=== PATIENT | male | born 1960 | race Caucasian/White ===

== ENCOUNTER 2017-05-28 13:13 | Inpatient (IN) | payer OTHER ==
[~2017-05-28] VITALS: Ht 182.9 cm; Wt 129.3 kg
[2017-06-21] MEDS ORDERED: METOPROLOL SUCC50 MG PO (17:47)
[2017-06-21] MEDS ORDERED: AMLODIPINE BESYL5 MG PO (17:47)
[2017-06-21] MEDS ORDERED: LEVOTHYROXINE50 MCG PO (17:48)
[2017-06-21] MEDS ORDERED: ENALAPRIL MALEA20 MG PO (17:48)
--- NOTE | 2017-06-22 09:31 | NUR ---
06/22/17 0931 Dawn Tesfaye 0942-PATIENT ARRIVED TO PACU ON 8L MASK O2 SAT 99% NONAROUSABLE DRESSING TO LEFT HIP CDI ABDUCTOR PILLOW IN PLACE ICE APPLIED. 0930-PATIENT AROUSING RUBBING FACE. EYES CLOSED.
--- NOTE | 2017-06-22 10:46 | NUR ---
PT ARRIVED TO ROOM 124 AT 1015 WITH GUERO BRYANT. NUMBNESS IN LOWER EXTREMITIES BUT ABLE TO MOVE SLIGHTLY. ASSISTED UP IN BED. IVF INFUSING AT 125ML/HR. NO PAIN REPORTED. HR 44-50 AND ASYMPTOMATIC-- REPORTED BY GUERO BRYANT AND ALSO VISUALIZED ON CONTINUOUS PULSE OX MACHINE. EDUCATED ON USE OF IS. SCDs IN PLACE. HEART SOUNDS DISTANT D/T POSITION AND SIZE OF PATIENT. LUNGS CLEAR. BT HYPOACTIVE.
--- NOTE | 2017-06-22 11:22 | NUR ---
PATIENT AWAKE AND ALERT. VSS ON ROOM AIR. AT BEDSIDE. NO PAIN. PATIENT ASKING WHEN HE CAN GET UP. WILL CONSULT PHYSICAL THERAPY ABOUT SCHEDULE.
--- NOTE | 2017-06-22 12:14 | NUR ---
MED REC COMPLETE WITH SAFEWAY REFILL HISTORY AND PATIENT INTERVIEW. PATIENT HAD EXCESS METOPROLOL THEREFORE HAS NOT FILLED IN A WHILE, BUT IS STILL TAKING THIS MEDICATION.
--- NOTE | 2017-06-22 13:25 | NUR ---
PATIENT TO FLOOR FROM OR. RN IN ROOM.
--- NOTE | 2017-06-22 14:49 | NUR ---
PATIENT UP TO WALK WITH PT, STARTS VOMITTING. PATIENT BACK TO ROOM, MEDICATED WITH 10 MG IV REGLAN. PATIENT SITTING UP AT SIDE OF BED DOING EXERCISES WITH PT.
--- NOTE | 2017-06-22 14:51 | NUR ---
PATIENT WORKING WITH PATIENT IN ROOM.
--- NOTE | 2017-06-22 14:55 | NUR ---
PT HAVING INTERMITTENT BOUTS OF NAUSEA/VOMITING. WORKING WITH PHYSICAL THERAPY NOW. AMBULATED HALLS. UNABLE TO URINATE WHEN UP TO BATHROOM, BUT DID HAVE INCONTINENT EPISODE IN BED. WILL BLADDER SCAN WHEN PATIENT BACK TO BED.
--- NOTE | 2017-06-22 15:43 | OR ---
[facility] [address] [place], [place] [address] Signed DATE OF OPERATION: 06/22/2017 SURGEON: Frankie Dye MD PREOPERATIVE DIAGNOSIS: End-stage osteoarthritis, left hip. POSTOPERATIVE DIAGNOSIS: End-stage osteoarthritis, left hip. PROCEDURE: Left total hip arthroplasty. IMPLANTS: Size 54 Gription sector shell with one screw followed by a neutral 36 liner. On the femoral side, there was a size 7 [place] stem, porous ingrowth, high offset and then we used a +2 mm 36 head. ANESTHESIA: Spinal with sedation. SPECIMENS: There were no specimens. COMPLICATIONS: There were no complications. BLOOD LOSS: About 200 mL. WHAT WAS DONE: The patient was taken to the operating room. After anesthesia was induced and the patient sedated, he was placed in the right lateral decubitus position and prepped and draped in a routine sterile fashion. Using a slightly curvilinear lateral incision, skin was divided sharply. Hemostasis was achieved with electrocautery. The subcutaneous tissue was bluntly spread and again hemostasis was achieved with electrocautery. The deep fascia was incised in line with the skin incision and the Charnley retractor was placed. We then released the anterior one-third of the gluteus off the anterior aspect of the greater trochanter and retracted it medially. We then did an anterior capsulectomy. This enabled us to dislocate the head. We resected the head/neck fragment Electronically Signed By: FRANKIE DYE MD 06/22/17 1543 PATIENT NAME: LEOBARDO RAWLS OPERATIVE REPORT DATE OF : 56 PHYSICIAN: FRANKIE DYE MD REPORT #: [id number] REPORT IS CONFIDENTIAL AND NOT TO BE RELEASED WITHOUT AUTHORIZATION [facility] [address] [place], [place] [address] Signed using the given guide. The head and neck fragments were removed. The self-retaining [place] retractor was then placed along with a Christine retractor at the 12 o'clock position. We then used electrocautery to excise the remaining portion of the labrum along with the contents of the pulvinar. We then began to ream and reamed up to a 54 mm shell. We then impacted a 54 mm Gription cup which fit quite snugly. We did secure with one additional screw placed posterosuperiorly. We then impacted the neutral 36 liner. We then rotated the femur up into the wound and prepared it using standard reamers and broaches. We were quite happy with the size 7 broach. We reduced it on a -2 standard offset head. There was still some medial lateral laxity and the leg length was slightly short. An AP x-ray was taken which showed good alignment and position of the cup and the femoral component. We therefore dislocated the hip, put in the real stem and then reduced it again with the +2 head and were happy with alignment, position, motion and stability. The wound was gently irrigated and closed in standard fashion. A sterile dressing was applied and the patient was placed in a hip abduction splint, awakened and taken to the recovery room where arrived in stable condition. Counts were correct and antibiotic protocols were followed. Frankie Dye MD WFB/MODL /[id number] Electronically Signed By: FRANKIE DYE MD 06/22/17 1543 PATIENT NAME: RAWLSLEOBARDO OPERATIVE REPORT DATE OF : 56 PHYSICIAN: FRANKIE DYE MD REPORT #: [id number] REPORT IS CONFIDENTIAL AND NOT TO BE RELEASED WITHOUT AUTHORIZATION
--- NOTE | 2017-06-22 16:21 | NUR ---
PT UNABLE TO URINATE, BUT BLADDER SCAN RESULTS SHOWED 250CC IN BLADDER. WILL CONTINUE TO MONITOR URINE OUTPUT.
--- NOTE | 2017-06-22 18:13 | NUR ---
PT URINATED 25ML INTO URINAL. BLADDER SCAN 336ML. WILL CONTINUE TO MONITOR UO.
--- NOTE | 2017-06-22 18:19 | NUR ---
POST OP DAY 0. OUT OF BED WITH PHYSICAL THERAPY TO AMBULATE HALLS. 1PA WITH FWW. EMESIS WHILE AMBULATING. ZOFRAN AND REGLAN GIVEN. TOLERATING CLEAR LIQUIDS. SOME NAUSEA STILL. NO PAIN. IVF @ 125. LEFT HIP DRESSING C/D/I. REINFORCE FALL PREVENTION STRATEGIES TO PATIENT. 25CC URINE OUT INTO URINAL. LAST BLADDER SCAN AT 1730 336ML. WILL CONTINUE TO MONITOR. ROOM AIR. SCDs. ICE TO LEFT HIP.
--- NOTE | 2017-06-22 19:59 | NUR ---
RECEIVED REPORT FROM DAY SHIFT RN. PATIENT IS RESTING IN BED WATCHING TV. PATIENT DENIES ANY PAIN OR NAUSEA. CALL LIGHT IN REACH.
--- NOTE | 2017-06-22 20:35 | NUR ---
PATIENT ASSESMENT COMPLETED. PATIENTS EVENING MEDICATIONS GIVEN PER ORDER. PATIENT DENIES ANY PAIN. PATIENT DENIES ANY NAUSEA. PATIENT AHS MEPILEX AND OPSITE ON LEFT HIP AND DRESSING IS C/D/I, NO DRAINAGE NOTED. PATIENT HAS WEDGE IN PLACE. PATIENT WAS ABLE TO VOID QS. PATIENT RECEIVED BENADRYL FOR ITCHING. PATIENT DENIES ANY FURTHER NEEDS. CALL LIGHT IN REACH.
--- NOTE | 2017-06-22 23:14 | NUR ---
NURSE NOTIFIED RE VITAL SIGNS.
--- NOTE | 2017-06-22 23:33 | NUR ---
PATIENTS 2300 MEDICATIONS GIVEN PER ORDER. PATIENT CONTINUES TO DENY ANY PAIN AT THIS TIME. PATIENT DENIES NAUSEA. PATIENT DENIES ANY FURTHER NEEDS CALL LIGHTIN REACH.
--- NOTE | 2017-06-23 01:13 | NUR ---
PATIENT IS RESTING IN BED WITH EYES CLOSED. PULSE OX READINGS ARE WNL. CALL LIGHT IN REACH.
--- NOTE | 2017-06-23 03:43 | NUR ---
PATIENT IS IN BED RESTING IWTH EYES CLOSED. BREATHING IS EVEN AND UNLABORED, RR18. CALL LIGHT IN REACH.
--- NOTE | 2017-06-23 04:23 | NUR ---
PATIENT GIVEN SCHEDULED TORADOL PER ORDER. PATIENT DENIES PAIN. PATIENT STATED "MY HIP IS JUST SORE, I CAN FEEL ITS THEIR, BUT NO PAIN" PATIENT DENIES ANY NAUSEA. PATIENT DENIES ANY FURTHER NEEDS AT THIS TIME. CALL LIGHT IN REACH.
--- NOTE | 2017-06-23 05:10 | NUR ---
PATIENT HAS GOOD INTAKE AND OUPUT. PATIENT IS NOW SL PER ORDER.
--- NOTE | 2017-06-23 05:21 | NUR ---
PATIENT RESTED ON AND OFF THROUGHOUT THE SHIFT. PATIENT DENIES ANY PAIN. PATIENT HAS SCHEDULED TORADOL AND TYLENOL FOR PAIN, NO PRN NEEDED. PATIENT DENIED ANY NAUSEA. PATIENT RECEIVED BENADRYL X1 FOR ITCHING. PATIENTS DIET WAS ADVANCED TO REG. PATIENT HAS ADEQUATE INTAKE AND OUTPUT. PATIENT IS SL. PATIENT IS AAOX3. PATIENT IS A 1PA W/FWW. PATIENT TOLERATES AMBULATION WELL. PATIENT HAS WEDGE IN PLACE WHILE IN BED. PATIENT USES CALL LIGHT APPROPRIATELY.
--- NOTE | 2017-06-23 06:40 | NUR ---
PATIENTS MORNING MEDICATIONS GIVEN PER ORDER. PATIENT RATES PAIN AT A 1/10. PATIENT DENIES THE NEED FOR PAIN MEDICATION AT THIS TIME. PATIENT IS SL, IV FLUSHES WELL. PULSE OX REMOVED. PATIENT IS 99% ON RA. PATIENT DENIES ANY NAUSEA. PATIENT DENIES ANY FURTHER NEEDS AT THIS TIME. CALL LIGHT IN REACH.
--- NOTE | 2017-06-23 08:00 | NUR ---
PATIENT UP TO CHAIR WITH ONE PERSON ASSIST WITH FWW. LINES CHANGED. ORAL CARE AND BATH DONE. CALL BUTTON IN REACH. RN IN ROOM.
--- NOTE | 2017-06-23 08:30 | NUR ---
PATIENT SITTING IN CHAIR. PATIENT MOVED TO CHAIR BY PROJECT MANAGEMENT. TOLERATED TRANSFER WELL. PATINT STATING PAIN CURRENTLY 08/28. PATIENT AT FIRST REFUSED PAIN MEDICATION. EDUCATED ABOUT STAING AHEAD OF PAIN AND THE PLAN TO WORK WITH PT. PATIENT THEN AGREED TO TAKE 5MG OXYCODONE. VITALS TAKEN ASSESSMENT COMPLETE. PATIENTS MEPILEX ON L HIP C/D/I. NO SOB. MEDICATION GIVEN. PATIENT DOING BED WIPES AT THIS TIME.
--- NOTE | 2017-06-23 09:36 | NUR ---
PATIENT SITTING UP IN CHAIR WATCHING TV. FRESH ICE WATER GIVEN NO NEEDS AT THIS TIME.
--- NOTE | 2017-06-23 09:38 | NUR ---
PATIENT CONTINUES TO SIT IN CHAIR TOLERATING WELL. FRIEND IN ROOM VISITING WITH PATIENT. PATIENT STATING NO OTHER NEEDS AT THIS TIME. CALL LIGHT WITHIN REACH.
--- NOTE | 2017-06-23 10:14 | NUR ---
toradol given. patient sitting in chair. rating pain 1-2 fletcher. patietn stating " just small ache". legs elevated. iv flushes well. no other needs at this time. call light within reach.
--- NOTE | 2017-06-23 10:54 | NUR ---
patient working with pt. stating pain okay at this time. tolerating ambulation well.
--- NOTE | 2017-06-23 12:43 | NUR ---
PATIENT SITTING UP IN CHAIR PLAYING ON HIS TABLET. NO NEEDS AT THIS TIME.
--- NOTE | 2017-06-23 13:16 | NUR ---
PATIENT RESTING IN CHAIR. PATIENT STATING PAIN " OKAY, CAN GET SHARP IN L HIP". AGREED TO TAKE 5 MG OXY. PATIENT RESTING WITH LEGS ELEVATED. NO NO OTHER COMPLAINTS AT THIS TIME.
--- NOTE | 2017-06-23 13:56 | NUR ---
PATIENT RESTING IN CHAIR. VISITOR IN ROOM. FRESH ICE WATER GIVEN. NO OTHER NEEDS AT THIS TIME.
--- NOTE | 2017-06-23 16:12 | NUR ---
PATIENT WORKING WITH PT.
--- NOTE | 2017-06-23 16:45 | NUR ---
patient working with pt in treatment room. patient stating pain increasing. took tylenol and toradol in room due to pain while working with pt. patient working self into a sweat. once to room got wash cloth to wash face. ice packs for hip. assisted to chair with legs up. new water. patient sating pain increased when working with pt but refused to take more pain medication at this time. requesting to take two pills of the narcotic pain medications tonight before bed. educated patient about staying ahead of pain and keep up with pain medications. patient stated that he would like me know when he was ready to take more pain medications.
--- NOTE | 2017-06-23 17:01 | NUR ---
ina doing well today. working with pt. doing stairs. tolerating ambulating with a stby assist and walker. patient likes to take 1 pain pill at a times. had increased pain this evening and is requesting to take two before bed. scheduled toradol and tylenol given with prn oxy and dilaudid. no nausea on shift. tolerating regular diet well. needs to be educated on prn bowel medications. plan to discharge home tomorrow with outpatient pt.
--- NOTE | 2017-06-23 17:45 | NUR ---
PATIENT SITTING UP IN CHAIR WITH VISITOR IN ROOM. CALL BUTTON INREACH. FRESH ICE WATER GIVEN. NO OTHER NEEDS AT THIS TIME.
--- NOTE | 2017-06-23 17:53 | NUR ---
patient stating pain a 6 with any type of movement. gave 2 tavs oxy. girlfriend in room. no other needs at this time.
--- NOTE | 2017-06-23 19:48 | NUR ---
RECEIVED REPORT FROM DAY SHIFT RN. PATIENT IS RESTING IN BED WATCHING TV. PATIENT DENIES ANY PAIN AT THIS TIME. CALL LIGHT IN REACH.
--- NOTE | 2017-06-23 21:20 | NUR ---
PATIENT ASSESMENT COMPLETED. PATIENTS EVENING MEDICATIONS GIVEN PER ORDER. PATIENT EDUCATED ON CONSTIPATION AND IMPORTNACE OF BOWEL CARE MEDICATIONS. PATIENT VERBALIZED UNDERSTANDING. PATIENT TOOK SCHEDULED BOWEL CARE MEDICATIONS. PATIENT GIVEN PRN PAIN MEDICATIONS PER ORDER. FOR 5/10 PAIN IN HIS LEFT HIP. PATIENTS DRESSING IS C/D/I. PATIENT DENIES ANY NAUSEA. PATIENT DID NOT EAT ANY OF HIS DINNER STATED "I JUST FEEL BLOATED, I AM NOT HUNGRY" PATIENT DENIES ANY FURTHER NEEDS AT THIS TIME. PATIENT HAS CRYO IN PLACE AND ICE IS SUFFICIENT. HEEL PROTECTORS AND SCDS IN PLACE. CALL LIGHT IN REACH.
--- NOTE | 2017-06-23 23:00 | NUR ---
PATIENT GIVEN PRN PAIN MEDICATION FOR 5/10 PAIN IN HIS RIGHT HIP. PATIENT REFUSED ICE TO BE PLACED ON HIS LEFT HIP. PATIENT DENIES ANY FURTHER NEEDS AT THIS TIME. CALL LIGHT IN REACH.
--- NOTE | 2017-06-24 01:00 | NUR ---
PATIENT GIVEN SCHEDULED MEDICATION PER ORDER. PATIENT ALSO GIVEN PRN PAIN MEDICATION FOR 3/10 PAIN. PATIENT DENIES ANY FURTHER NEEDS A THIS TIME. CALL LIGHT IN REACH.
--- NOTE | 2017-06-24 03:03 | NUR ---
PATIENT IS RESTING IN BED WITH EYES CLOSED, RR 18. CALL LIGHT IN REACH.
--- NOTE | 2017-06-24 04:21 | NUR ---
PATIENT GIVEN SCHEDULED MEDICATION. PATIENT GIVEN PRN PAIN MEDICAITION PER ORDER. PATIENT RATES PAIN AT A 3/10. PATIENT DENIES ANY NAUSEA. PATIENT REFUSES ANY ICE PACKS. PATIENT DENIES ANY FURTHER NEEDS. CALL LIGHT IN REACH.
--- NOTE | 2017-06-24 05:36 | NUR ---
PATIENT RESTED ON AND OFF THROUGHOUT THE SHIFT. PATIENT HAS RECEIVED PRN PAIN MEDICATION MULTIPLE TIMES, GOOD PAIN CONTROL. PATIENT IS ON A REG DIET AND TOLERATING WELL, NO COMPLAINTS OF NAUSEA. PATIENT IS SL AND IV FLUSHES WELL. RODNEY HAS HEEL PROTECTORS AND SCDS IN PLACE. PATIENT HAS REFUSED ICE TO BE PLACED ON HIS HIP. PATIENTS DRESSING IN LEFT HIP IS C/D/I, NO DRAINAGE NOTED. PATIENT IS SBA W/FWW AND IS STEADY ON HIS FEET. PATIENT IS AAOX3 AND USES CALL LIGHT APPROPRIATLEY.
--- NOTE | 2017-06-24 06:25 | NUR ---
PATIENT GIVEN SCHEULED MEDICATION AND PRN PAIN MEDICATION PER ORDER. PATIENT DENIES ANY FURTHER NEEDS. SO IN THE ROOM.
--- NOTE | 2017-06-24 06:39 | NUR ---
PATIENT CALLED AND ALERTED STAFF THAT HE HAD SOME EMESIS. PATIENT GIVEN PRN ZOFRAN PER ORDER. PATIENT HAD 300ML OF EMESIS. PATIENT DENIES ANY FURTHER NEEDS. WILL CONTINUE TO MONITOR. CALL LIGHT IN REACH.
--- NOTE | 2017-06-24 07:40 | NUR ---
BEDSIDE REPORT RECEIVED FROM DANK. ASSUMING PATIENT'S CARE AT THIS TIME. PATIENT AWAKE IN BED. REPORT VERY MINIMAL PAIN ON THE LEFT HIP. PATIENT HAD ORDERED BREAKFAST. DRESSING ON LEFT HIP D/C/I. IV SITE WNL.CALL LIGHT AND PERSONAL BELONGING WITHIN REACH. PATIENT HAD NO OTHER REQUEST.
--- NOTE | 2017-06-24 08:20 | NUR ---
PATIENT UP IN CHAIR. STATES FEELING GOOD. STATES "I'M GOING HOME WITH TARYN TODAY". DISCUSSED THAT HE STILL WANTS TO DO OUTPATIENT THERAPY WITH [facility]. ASSURRED HIM THAT WE WILL SEND CLINICALS TO THEM AFTER DISCHARGE.
--- NOTE | 2017-06-24 08:45 | NUR ---
PATIENT WAS UP WALKING IN THE HALLWAY WITH PHYSICAL THERAPIST. PATIENT BACK TO ROOM SITTING ON THE CHAIR. PATIENT REPORTED BEING NAUSEOUS. PATIENT WAS MEDICATED WITH REGLAN. PATIENT REPORTED VERY MINIMAL PAIN ON LEFT HIP. NOT ABLE EAT HIS BREAKFAST AT THIS TIME. CALL LIGHT AND PERSONAL BELONGING WITHIN REACH.
--- NOTE | 2017-06-24 09:16 | NUR ---
PATIENT IS SET UP FOR HIS SHOWER. GOT HIM SOME MORE ICE WATER. SITTING IN HIS CHAIR.
--- NOTE | 2017-06-24 10:48 | NUR ---
PATIENT IS SLEEPING IN CHAIR WILL CHECK BACK IN LATER.
--- NOTE | 2017-06-24 10:58 | NUR ---
PATIENT RESTING IN THE CHAIR, REPORTED NO NAUSEA AT THIS TIME. MORNING MEDS ADMINISTERED. DENIES ANY PAIN AT THIS TIME. CALL LIGHT AND PERSONAL BELONGING WITHIN REACH
--- NOTE | 2017-06-24 11:59 | NUR ---
PATIENT HAD SHOWERED. RESTING IN THE CHAIR AT THIS TIME. REPORTS NO PAIN. STATED THAT HE IS NOT HUNGRY AT THIS TIME. CALL LIGHT AND PERSONAL BELONGING WITHIN REACH
--- NOTE | 2017-06-24 12:01 | NUR ---
PATIENT JUST GOT OUT OF THE SHOWER SAID IT FELT GOOD. ALEXANDER THE NURSE CLEANED UP THE TOWELS FROM THE SHOWER. NOW PATIENT IS SITTING IN HIS CHAIR READING HIS TABLET.
--- NOTE | 2017-06-24 13:00 | NUR ---
DR DYE WAS IN ROOM TO SEE AND RE-EVALUATE PATIENT. PLAN FOR DC TODAY. PATIENT RESTING IN THE CHAIR DENIES ANY PAIN AT THIS TIME. FAMILY IN ROOM.
[2017-06-24] MEDS ORDERED: XARELTO10 MG PO (13:46)
[2017-06-24] MEDS ORDERED: OXYCODONE HCL10 MG PO (13:48)
[2017-06-24] MEDS ORDERED: DILAUDID4 MG PO (13:50)
[2017-06-24] MEDS ORDERED: ZOFRAN ODT4 MG SL (13:51)
--- NOTE | 2017-06-24 14:09 | NUR ---
PATIENT RESTING IN THE CHAIR, DC INSTRUCTION GIVEN, ALL QUESTIONS ANSWERED. PATIENT WAS MEDICATED FOR PAIN.
--- NOTE | 2017-06-24 14:48 | NUR ---
PT SITTING IN CHAIR, DRESSED WITH HIS GIRL FRIEND BY HIS SIDE. HE WAS FRIENDLY ALERT AND ORIENTED. HE WAS READY TO GO, AND CAN'T WAIT UNTIL HE CAN PLAY GOLF AGAIN. HE THANKED ME FOR COMING IN, I EXTENDED A BLESSING
--- NOTE | 2017-06-25 09:43 | NUR ---
OUT PATIENT REFERRAL WAS FAXED TO [facility] FOR OP PT SERVICES. REC'D FAX CONFIRMATIN.
--- NOTE | 2017-06-25 13:39 | DS ---
[facility] [address] [facility] [place], [place] [address] Signed ADMISSION DATE: 06/22/2017 DISCHARGE DATE: 06/24/2017 FINAL DIAGNOSIS: End-stage osteoarthritis, left hip. PROCEDURE: Left total hip arthroplasty. ATTENDING PHYSICIAN: Frankie Dye MD HOSPITAL COURSE: The patient is a 56-year-old white male with end-stage osteoarthritis of the left hip, for which conservative management no longer gave him any symptomatic relief. After reviewing the treatment alternatives, he was comfortable with proceeding with total hip arthroplasty. The patient was admitted through Day Surgery on the 22 of June and was taken to the operating room where he underwent a porous ingrowth total hip arthroplasty on the left using a size 54 mm GRIPT[place] cup with a neutral 36 liner and a size 7 high offset stem with a +2 mm 36 head. Postoperatively, he has done extremely well. He is independently ambulatory. Has gone up and down stairs and his pain is well controlled alternating Dilaudid and OxyIR. We have had him on Xarelto 10 mg one once a day for DVT prophylaxis and will continue that once he is discharged for another month. I would like to see him back in six weeks to re-x-ray his hip. He is to maintain total hip precautions in the meantime. MD SANDRA WilksB/GIANL /[id number] Electronically Signed By: FRANKIE DYE MD 06/25/17 1339 PATIENT NAME: LEOBARDO RAWLS DISCHARGE SUMMARY DATE OF : 56 PHYSICIAN: FRANKIE DYE MD REPORT #: [id number] REPORT IS CONFIDENTIAL AND NOT TO BE RELEASED WITHOUT AUTHORIZATION [facility] [address] [place], [place] [address] Signed Electronically Signed By: FRANKIE DYE MD 06/25/17 1339 PATIENT NAME: LEOBARDO RAWLS DISCHARGE SUMMARY DATE OF : 56 PHYSICIAN: FRANKIE DYE MD REPORT #: [id number] REPORT IS CONFIDENTIAL AND NOT TO BE RELEASED WITHOUT AUTHORIZATION
== END 2017-06-24 14:30 | disposition home or self-care (01) | DRG 470 ==
LOC: DSVR 06-22 05:45 → MS 06-22 06:45
PROVIDERS: ADMIT Orthopaedic Surgery
PROC: 0SRB0JZ Replacement of Left Hip Joint with Synthetic Substitute, Open Approach (ICD-10-PCS; principal; 2017-06-22 06:45)
DX: M16.12 Unilateral primary osteoarthritis, left hip (principal)
CPT/HCPCS: 01214; 36415; 72170; 73501; 80048; 85025; 94762; 97110; 97116; 97161; C1776; J0690; J1200; J1885; J2250; J2274; J2300; J2405; J2704; J2765; J3010; J7120